=== PATIENT | female | born 1975 | race Caucasian/White ===

== ENCOUNTER 2018-01-22 08:38 | Emergency (ER) | payer SELFPAY ==
[2018-01-22] MEDS ORDERED: Lidocaine 2% Viscous Solution 15 ML Cup PO ONE (08:47)
[2018-01-22] MEDS ORDERED: Benzocaine 20% Topical Spray UD MUCMEM ONE (08:47)
--- NOTE | 2018-01-22 09:07 | EDM.PDOC ---
ED HPI GENERAL MEDICAL PROBLEM - General Chief Complaint: General Stated Complaint: TOOTH HURTS Time Seen by Provider: 01/22/18 08:41 Source of Information: Reports: Patient History Limitations: Reports: No Limitations - History of Present Illness INITIAL COMMENTS - FREE TEXT/NARRATIVE: History of present illness: []Patient has chronic dental pain and awoke with pain in her right upper cheek. There is no swelling or fevers. She took 400 ibuprofen with minimal relief. She has not called the dentist. Review of systems: As per history of present illness and below otherwise all systems reviewed and negative. Past medical history: As per history of present illness and as reviewed below otherwise noncontributory. Surgical history: As per history of present illness and as reviewed below otherwise noncontributory. Social history: No reported history of drug or alcohol abuse. Family history: As per history of present illness and as reviewed below otherwise noncontributory. Physical exam: General: Well developed, well nourished in NAD HEENT: Atraumatic, normocephalic, pupils reactive, negative for conjunctival pallor or scleral icterus, mucous membranes moist, throat clear, neck supple, nontender, trachea midline. Multiple dental caries no facial swelling, no gingival swelling or obvious abscess however tender to palpation of the gingiva is present. Lungs: Clear to auscultation, breath sounds equal bilaterally, chest nontender. Heart: S1S2, regular, negative for clicks, rubs, or JVD. Abdomen: Soft, nondistended, nontender. Negative for masses or hepatosplenomegaly. Negative for costovertebral tenderness. Pelvis: Stable nontender. Genitourinary: Deferred. Rectal: Deferred. Extremities: Atraumatic, negative for cords or calf pain. Neurovascular unremarkable. Neuro: Awake, alert, oriented. Cranial nerves II through XII unremarkable. Cerebellum unremarkable. Motor and sensory unremarkable throughout. Exam nonfocal. Diagnostics: [] Therapeutics: [] Impression: []Dental abscess early Plan: []Penicillin VK as directed follow-up with a dentist, dental pulse for pain Definitive disposition and diagnosis as appropriate pending reevaluation and review of above. - Related Data Allergies Allergy/AdvReac Type Severity Reaction Status Date / Time No Known Allergies Allergy Verified 01/22/18 08:58 Home Meds: Home Meds . [No Known Home Meds] 01/22/18 [History] Past Medical History - Past Health History Medical/Surgical History: Denies Medical/Surgical History Social & Family History - Family History Family Medical History: Noncontributory - Tobacco Use Smoking Status *Q: Current Every Day Smoker Years of Tobacco use: 10 Packs/Tins Daily: 1 - Caffeine Use Caffeine Use: Reports: None - Recreational Drug Use Recreational Drug Use: No ED ROS GENERAL - Review of Systems Review Of Systems: See Below (See history of present illness) ED EXAM, GENERAL - Physical Exam Exam: See Below (See history of present illness) Course - Vital Signs Last Recorded V/S: Last Vital Signs Temp 97.8 F 01/22/18 08:58 Pulse 65 01/22/18 08:58 Resp 18 01/22/18 08:58 BP 111/65 01/22/18 08:58 Pulse Ox 98 01/22/18 08:58 - Orders/Labs/Meds Meds: Medications Discontinued Medications Generic Name Dose Route Start Last Admin Trade Name Freq PRN Reason Stop Dose Admin Benzocaine 2 each 01/22/18 08:47 Hurricaine One 20% MUCMEM 01/22/18 08:48 ONETIME ONE Lidocaine HCl 15 ml 01/22/18 08:47 Xylocaine 2% Viscous PO 01/22/18 08:48 ONETIME ONE Departure - Departure Time of Disposition: 09:06 Disposition: Home, Self-Care 01 Condition: Good Clinical Impression: Dental caries, Dental abscess - Discharge Information Referrals: PCP,None [Primary Care Provider] - Additional Instructions: The following information is given to patients seen in the emergency department who are being discharged to home. This information is to outline your options for follow-up care. We provide all patients seen in our emergency department with a follow-up referral. The need for follow-up, as well as the timing and circumstances, are variable depending upon the specifics of your emergency department visit. If you don't have a primary care physician on staff, we will provide you with a referral. We always advise you to contact your personal physician following an emergency department visit to inform them of the circumstance of the visit and for follow-up with them and/or the need for any referrals to a consulting specialist. The emergency department will also refer you to a specialist when appropriate. This referral assures that you have the opportunity for follow-up care with a specialist. All of these measure are taken in an effort to provide you with optimal care, which includes your follow-up. Under all circumstances we always encourage you to contact your private physician who remains a resource for coordinating your care. When calling for follow-up care, please make the office aware that this follow-up is from your recent emergency room visit. If for any reason you are refused follow-up, please contact the [facility] Emergency Department at and asked to speak to the emergency department charge nurse. Dental balls as directed, ibuprofen or Tylenol for pain follow-up with a dentist for further care. [facility] [address] [place] [id number]
== END 2018-01-22 09:36 | disposition home or self-care (01) ==
LOC: MW.ED 08:38
DX: K04.7 Periapical abscess without sinus (principal); K02.9 Dental caries, unspecified; F17.210 Nicotine dependence, cigarettes, uncomplicated
CPT/HCPCS: 99282; A9270

== ENCOUNTER 2023-05-23 09:51 | Emergency (ER) | payer BC | END 2023-05-23 10:53 | disposition home or self-care (01) | LOC: MW.ED 09:51 | DX: K04.7 Periapical abscess without sinus (principal); K03.81 Cracked tooth | CPT/HCPCS: 99283 ==

== ENCOUNTER 2023-07-06 09:05 | Emergency (ER) | payer BC, MEDICAID | END 2023-07-06 10:22 | disposition home or self-care (01) | LOC: MW.ED 09:05 | DX: K04.7 Periapical abscess without sinus (principal); F17.210 Nicotine dependence, cigarettes, uncomplicated | CPT/HCPCS: 99282; 99283 ==

== ENCOUNTER 2023-07-12 21:04 | Emergency (ER) | payer BC, MEDICAID ==
[2023-07-12] MEDS ORDERED: Ondansetron 4 MG Tab.DIS PO ONE (21:51)
[2023-07-12] MEDS ORDERED: HYDROmorphone 1 MG/ML Syringe IM ONE (21:51)
[2023-07-12] MEDS ORDERED: Clindamycin HCl 150 MG Cap PO ONE (21:52)
== END 2023-07-12 22:33 | disposition home or self-care (01) ==
LOC: MW.ED 21:04
DX: K04.7 Periapical abscess without sinus (principal); K02.9 Dental caries, unspecified
CPT/HCPCS: 96372; 99282; A9270; J1170; 99283

== ENCOUNTER 2023-11-09 19:33 | Emergency (ER) | payer MEDICAID ==
[2023-11-09] MEDS: Benzocaine 20% Topical Spray UD MUCMEM ONE (20:51)
[2023-11-09] MEDS: Lidocaine 2% Viscous Solution 15 ML UD PO ONE (20:51)
== END 2023-11-09 20:53 | disposition home or self-care (01) ==
LOC: MW.ED 19:33
DX: K04.7 Periapical abscess without sinus (principal); Z79.899 Other long term (current) drug therapy
CPT/HCPCS: 99282; A9270; 99283